=== PATIENT | female | born 2000 | race African-American/Black ===

== ENCOUNTER 2025-03-01 06:24 | Emergency (ER) | payer BC, SELFPAY ==
[2025-03-01] MEDS ORDERED: ONDANSETRON 4 MG/2 ML VIAL ONE (07:20)
[2025-03-01] MEDS ORDERED: FAMOTIDINE 20 MG/2 ML VIAL IV ONE (07:20)
[2025-03-01 07:46] LABS: Absolute Lymphocytes (CBC) 1.7 K/uL (0.7-4.9); Hematocrit 43.9 % (36.0-45.0); Hemoglobin 14.7 g/dL (12.0-15.0); MCH 27.1 pg (27.0-35.0); MCHC 33.4 g/dL (32.0-36.0); MCV 81.2 fL (80-100); MPV 6.3 fL (7.6-11.3); Nucleated RBC Absolute Count 0.0 (0-0); Nucleated Red Blood Cells % 0.2 % (0-0); RBC Red Blood Cell Count 5.41 M/uL (3.86-4.86); White Blood Count 4.40 thou/uL (4.3-10.9)
[2025-03-01 07:51] LABS: Sqamous Epithelial 20-50 /HPF (None Seen); Urine Crystals Unidentified Few /HPF (None Seen); Urine Microscopic Reflex YN ORDER UMIC
[2025-03-01 08:00] LABS: Urine Culture Reflex Order NOT NEEDED
[2025-03-01 08:07] LABS: ALT/SGPT 27.0 U/L (13-56); AST/SGOT 13.0 U/L (15-37); Albumin 3.8 g/dL (3.4-5.0); Albumin/Globulin Ratio 0.8 (1.1-1.8); Alkaline Phosphatase 57.0 U/L (45-117); Anion Gap 6.9 mEq/L (5.0-15.0); BUN Blood Urea Nitrogen 17.0 mg/dL (7-18); Globulin 4.5 g/dL (2.3-3.5); Glucose Level 98.0 mg/dL (74-106); Lipase 43.0 U/L (13-75); Potassium 3.9 mEq/L (3.5-5.1)
--- NOTE | 2025-03-01 08:22 | RAD REPORT ---
EXAMINATION: US Abdomen Exam Limited CLINICAL HISTORY: [facility] MAIN Y ABD PAIN Bed Name: 17 COMPARISON: None. TECHNIQUE: Limited upper abdominal grayscale and color flow sonographic images. FINDINGS: Gallbladder: Suboptimally distended limiting. No cholelithiasis or significant sludge. No wall thicke mirna. No pericholecystic fluid. Reportedly negative sonographic Ruiz sign Bile ducts: No intrahepatic or extrahepatic biliary dilatation. Common bile duct measures 1 mm. Liver: Visualized portions of the liver demonstrate normal echogenicity with no suspicious findings. Fluid: No ascites. IMPRESSION: No abnormalities on right upper quadrant ultrasound.
--- NOTE | 2025-03-01 09:09 | RAD REPORT ---
EXAMINATION: CT Abdomen Pelvis W Contrast CLINICAL INDICATION: Female, 24 years old. ABD PAIN TECHNIQUE: CT abdomen and pelvis was performed, after the administration of IV [facility] Axial, sagittal and coronal reconstructions were obtained. One or more of the following dose reduction techniques were used: Automated exposure control, adjustment of the mA and k V according to patient size, and iterative reconstruction. Unless otherwise specified, incidental findings do not require dedicated imaging follow-up. COMPARISON: Abdomen ultrasound of the same day FINDINGS: LOWER CHEST: The visualized lung bases are clear. LIVER: Normal in size and contour. No focal lesion. BILIARY SYSTEM: No suspicious abnormalities. SPLEEN: Normal size. No focal lesion. PANCREAS: No mass, ductal dilation, or renée-pancreatic fluid. ADRENALS: Normal; no mass. KIDNEYS: Normal size and contour. No hydronephrosis. URINARY BLADDER: Unremarkable. GASTROINTESTINAL TRACT: No evidence of free air, significant intra-abdominal free fluid, bowel obstru ction or abscess. APPENDIX: Normal appendix. LYMPH NODES: No lymphadenopathy. MUSCULOSKELETAL: No acute or suspicious osseous abnormality. ADDITIONAL FINDINGS: None. IMPRESSION: No acute or concerning abnormalities seen in the abdomen or pelvis.
--- NOTE | 2025-03-01 09:29 | ER ---
Nurse's Notes [facility] Name: Laura Garcia Age: 24 yrs Sex: Female : 2000 Arrival Date: 03/01/2025 Time: 06:24 Bed 17 Private MD: Diagnosis: Abdominal pain, unspecified;Nausea with vomiting, unspecified Presentation: 03/01 06:51 Chief complaint: Patient states: C/O AB PAIN, N/V/D SINCE SATURDAY. DENIES FEVER. br2 Coronavirus screen: Client denies travel out of the [place] in the last 14 days. Ebola Screen: Patient denies exposure to infectious person. Initial Sepsis Screen: Does the patient meet any 2 criteria? No. Patient's initial sepsis screen is negative. Does the patient have a suspected source of infection? No. Patient's initial sepsis screen is negative. Risk Assessment: Do you want to hurt yourself or someone else? Patient reports no desire to harm self or others. Onset of symptoms was February 26, 2025. 06:51 Method Of Arrival: Ambulatory br2 06:51 Acuity: LEANDER 3 br2 Triage Assessment: 06:53 General: Appears in no apparent distress. comfortable, Behavior is calm, cooperative. br2 Pain: Complains of pain in right upper quadrant, left upper quadrant, right lower quadrant and left lower quadrant Pain currently is 4 out of 10 on a pain scale. GI: Reports lower abdominal pain, upper abdominal pain, rectal bleeding, nausea, vomiting. 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 - Infectious Disease History:: Denies. - Social history:: Smoking status: Patient/guardian denies using tobacco, Patient uses alcohol, only on a social basis. Patient/guardian denies using street drugs. - Family history:: not pertinent. Screenin:13 [facility] ED Fall Risk Assessment (Adult) History of falling in the last 3 months, zm including since admission No falls in past 3 months (0 pts) Confusion or Disorientation No (0 pts) Intoxicated or Sedated No (0 pts) Impaired Gait No (0 pts) Mobility Assist Device Used No (0 pt) Altered Elimination No (0 pt) Score/Fall Risk Level 0 - 2 = Low Risk Oriented to surroundings, Maintained a safe environment, Educated pt \T\ family on fall prevention, incl call for assistance when getting out of bed, Assessed \T\ reinforced patient's understanding of fall precautions, Hourly rounding (assess needs \T\ fall precautionary measures) done, Used ambulatory aids as needed (educated on \T\ assisted with), Used gait belt as appropriate. Abuse screen: Denies threats or abuse. Denies injuries from another. Nutritional screening: No deficits noted. Tuberculosis screening: No symptoms or risk factors identified. Assessment: 07:15 General: Appears in no apparent distress. comfortable. Pain: Complains of pain in zm abdomen Pain currently is 3 out of 10 on a pain scale. Pain began 2-3 days ago. Is continuous. 07:15 Neuro: No deficits noted. Level of Consciousness is awake, alert, obeys commands, zm Oriented to person, place, time, situation. Cardiovascular: No deficits noted. Heart tones S1 S2 present Capillary refill < 3 seconds in bilateral fingers Patient's skin is warm and dry. Respiratory: No deficits noted. Airway is patent Respiratory effort is even, unlabored, Respiratory pattern is regular, symmetrical, Breath sounds are clear bilaterally. in right upper lobe, left upper lobe, left lower lobe and right lower lobe. GI: Abdomen is flat, non-distended, Bowel sounds present X 4 quads. Abd is soft and non tender X 4 quads. Reports nausea, vomiting, since Saturday morning, February 27. : No signs and/or symptoms were reported regarding the genitourinary system. EENT: Reports nasal congestion since months. Derm: No signs and/or symptoms reported regarding the dermatologic system. Skin is intact, is healthy with good turgor, Skin is dry, Skin is normal, Skin temperature is warm. Musculoskeletal: No signs and/or symptoms reported regarding the musculoskeletal system. Circulation, motion, and sensation intact. Range of motion: intact in all extremities. 09:10 Reassessment: Patient appears in no apparent distress at this time. No changes from zm previously documented assessment. Patient and/or family updated on plan of care and expected duration. Pain level reassessed. Patient is alert, oriented x 3, equal unlabored respirations, skin warm/dry/pink. Patient denies pain at this time. Patient states feeling better. Patient states symptoms have improved. Vital Signs: 06:51 BP 141 / 96; Pulse 72; Resp 18; Temp 98.7; Pulse Ox 98% ; Weight 86.18 kg; Height 5 ft. br2 5 in. ; Pain 4/10; 08:17 BP 124 / 68; Pulse 70; Resp 17; Temp 98.5; Pulse Ox 99% on R/A; Pain 1/10; zm 09:10 BP 119 / 67; Pulse 74; Resp 18; Pulse Ox 100% on R/A; Pain 0/10; zm 09:42 BP 125 / 76; Pulse 71; Resp 17; Temp 98.5; Pulse Ox 100% on R/A; Pain 0/10; zm 06:51 Body Mass Index 31.62 (86.18 kg, 165.1 cm) br2 06:51 Pain Scale: Adult br2 08:17 Pain Scale: Adult zm 09:10 Pain Scale: Adult zm 09:42 Pain Scale: Adult zm [place] Coma Score: 08:18 Eye Response: spontaneous(4). Motor Response: obeys commands(6). Verbal Response: zm oriented(5). Total: 15. 09:27 Eye Response: spontaneous(4). Motor Response: obeys commands(6). Verbal Response: zm oriented(5). Total: 15. 09:42 Eye Response: spontaneous(4). Motor Response: obeys commands(6). Verbal Response: zm oriented(5). Total: 15. ED Course: 06:27 Patient arrived in ED. mr 06:42 Zana Munoz MD is Attending Physician. chase 06:53 Triage completed. br2 06:53 Arm band placed on right wrist. br2 07:13 Brianna Henry, RN is Primary Nurse. iw 07:15 Patient has correct armband on for positive identification. Bed in low position. Call zm light in reach. Side rails up X 1. Adult w/ patient. 07:15 Provided Education on: call light use. Client placed on continuous cardiac and pulse zm oximetry monitoring. NIBP monitoring applied. Pulse ox on. NIBP on. Door closed. Noise minimized. Lights dimmed. Warm blanket given. Verbal reassurance given. 07:30 US Abdomen Limited In Process Unspecified. EDMS 07:30 Initial lab(s) drawn, by wy, sent to lab. Urine collected: clean catch specimen, clear. zm Inserted saline lock: 20 gauge in left antecubital area, using aseptic technique. Blood collected. Flushed with 10 mL NS. 07:34 Attending Physician role handed off by Zana Munoz MD rn 07:34 Yung Winkler MD is Attending Physician. rn 07:39 CBC with Diff Sent. zm 07:39 CMP Sent. zm 07:39 Lipase Sent. zm 07:39 Test, Urine Sent. zm 07:39 UA Rfx Juan Cult if indicated Sent. zm 08:22 CT Abd/Pelvis - IV Contrast Only In Process Unspecified. EDMS 09:43 No provider procedures requiring assistance completed. IV discontinued, intact, zm bleeding controlled, No redness/swelling at site. Pressure dressing applied. Administered Medications: 07:39 Drug: Famotidine IVP 20 mg IVP once; dilute with 10 mL 0.9% NaCl; give over 2 minutes zm Route: IVP; Site: left antecubital; 09:45 Follow up: Response: No adverse reaction zm 07:39 Drug: Ondansetron IVP 4 mg IVP once; over 2 minutes Route: IVP; Site: left antecubital; zm 09:45 Follow up: Response: No adverse reaction; Nausea is decreased Medication: 08:17 VIS not applicable for this client. Outcome: 09:29 Discharge ordered by . rn 09:43 Discharged to home ambulatory, with family, 09:43 Condition: stable 09:43 Discharge instructions given to patient, Instructed on discharge instructions, follow up and referral plans. no drinking with medication, medication usage, Demonstrated understanding of instructions, follow-up care, medications, Prescriptions given X 1, 09:45 Patient left the ED. Signatures: Dispatcher [employer] EDMS Zana Munoz MD MD cha Rivera, Mary, Reg Reg mr Brianna Henry, Yung Sr RN, MD MD rn Martinez, Zaina, RN RN zm Riddle, Belinda, RN RN br2
--- NOTE | 2025-03-01 09:29 | EDPHYS ---
Physician Documentation [facility] Name: Laura Garcia Age: 24 yrs Sex: Female : 2000 Arrival Date: 03/01/2025 Time: 06:24 Bed 17 Private MD: ED Physician Yung Winkler HPI: 03/01 07:21 This 24 yrs old Black Female presents to ER via Ambulatory with complaints of Abdominal chase Pain. 07:21 The patient presents with abdominal pain in the upper abdomen, in the lower abdomen. chase Onset: The symptoms/episode began/occurred 3 day(s) ago. The patient presents to the emergency department with nausea, vomiting, diarrhea, abdominal pain, of the right upper quadrant, left upper quadrant, right lower quadrant and left lower quadrant. Possible causes: unknown. The symptoms are aggravated by nothing. The symptoms are alleviated by nothing. The symptoms do not radiate. Associated signs and symptoms: Pertinent positives: nausea and vomiting, diarrhea. 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 - Infectious Disease History:: Denies. - Social history:: Smoking status: Patient/guardian denies using tobacco, Patient uses alcohol, only on a social basis. Patient/guardian denies using street drugs. - Family history:: not pertinent. ROS: 07:21 Constitutional: Negative for fever, chills, and weight loss, Eyes: Negative for injury, chase pain, redness, and discharge, ENT: Negative for injury, pain, and discharge, Neck: Negative for injury, pain, and swelling, Cardiovascular: Negative for chest pain, palpitations, and edema, Respiratory: Negative for shortness of breath, cough, wheezing, and pleuritic chest pain, Back: Negative for injury and pain, : Negative for injury, bleeding, discharge, and swelling, MS/Extremity: Negative for injury and deformity, Skin: Negative for injury, rash, and discoloration, Neuro: Negative for headache, weakness, numbness, tingling, and seizure, Psych: Negative for depression, anxiety, suicide ideation, homicidal ideation, and hallucinations, Allergy/Immunology: Negative for hives, rash, and allergies, Endocrine: Negative for neck swelling, polydipsia, polyuria, polyphagia, and marked weight changes, 07:21 Abdomen/GI: Positive for abdominal pain, nausea and vomiting, Exam: 07:21 Constitutional: This is a well developed, well nourished patient who is awake, alert, chase and in no acute distress. Head/Face: Normocephalic, atraumatic. Eyes: Pupils equal round and reactive to light, extra-ocular motions intact. Lids and lashes normal. Conjunctiva and sclera are non-icteric and not injected. Cornea within normal limits. Periorbital areas with no swelling, redness, or edema. ENT: Nares patent. No nasal discharge, no septal abnormalities noted. Tympanic membranes are normal and external auditory canals are clear. Oropharynx with no redness, swelling, or masses, exudates, or evidence of obstruction, uvula midline. Mucous membranes moist. Neck: Trachea midline, no thyromegaly or masses palpated, and no cervical lymphadenopathy. Supple, full range of motion without nuchal rigidity, or vertebral point tenderness. No Meningismus. Chest/axilla: Normal chest wall appearance and motion. Nontender with no deformity. No lesions are appreciated. Cardiovascular: Regular rate and rhythm with a normal S1 and S2. No gallops, murmurs, or rubs. Normal PMI, no JVD. No pulse deficits. Respiratory: Lungs have equal breath sounds bilaterally, clear to auscultation and percussion. No rales, rhonchi or wheezes noted. No increased work of breathing, no retractions or nasal flaring. Back: No spinal tenderness. No costovertebral tenderness. Full range of motion. Skin: Warm, dry with normal turgor. Normal color with no rashes, no lesions, and no evidence of cellulitis. MS/ Extremity: Pulses equal, no cyanosis. Neurovascular intact. Full, normal range of motion., bilateral aka Neuro: Awake and alert, GCS 15, oriented to person, place, time, and situation. Cranial nerves II-XII grossly intact. Motor strength 5/5 in all extremities. Sensory grossly intact. Cerebellar exam normal. Normal gait. Psych: Awake, alert, with orientation to person, place and time. Behavior, mood, and affect are within normal limits. 07:21 Abdomen/GI: Inspection: abdomen appears normal, Bowel sounds: normal, Palpation: mild abdominal tenderness, in all quadrants, Liver: no appreciated palpable abnormalities, Hernia: not appreciated, 07:21 Musculoskeletal/extremity: DVT Exam: No signs of deep vein thrombosis. no pain, no swelling, no tenderness, negative Homans' sign noted on exam, no appreciated bluish discoloration, no erythema, no increased warmth, Vital Signs: 06:51 BP 141 / 96; Pulse 72; Resp 18; Temp 98.7; Pulse Ox 98% ; Weight 86.18 kg; Height 5 ft. br2 5 in. ; Pain 4/10; 08:17 BP 124 / 68; Pulse 70; Resp 17; Temp 98.5; Pulse Ox 99% on R/A; Pain 1/10; zm 09:10 BP 119 / 67; Pulse 74; Resp 18; Pulse Ox 100% on R/A; Pain 0/10; zm 09:42 BP 125 / 76; Pulse 71; Resp 17; Temp 98.5; Pulse Ox 100% on R/A; Pain 0/10; zm 06:51 Body Mass Index 31.62 (86.18 kg, 165.1 cm) br2 06:51 Pain Scale: Adult br2 08:17 Pain Scale: Adult zm 09:10 Pain Scale: Adult zm 09:42 Pain Scale: Adult zm [place] Coma Score: 08:18 Eye Response: spontaneous(4). Motor Response: obeys commands(6). Verbal Response: zm oriented(5). Total: 15. 09:27 Eye Response: spontaneous(4). Motor Response: obeys commands(6). Verbal Response: zm oriented(5). Total: 15. 09:42 Eye Response: spontaneous(4). Motor Response: obeys commands(6). Verbal Response: zm oriented(5). Total: 15. MDM: 06:42 Medical Screening Exam initiated chase 07:23 Differential diagnosis: Nonspecific abd pain, gastritis, cholecystitis, pancreatitis, chase appendicitis, diverticulitis, viral gastroenteritis, gastroenteritis, appendicitis, cholecystitis, Cholelithiasis, gastritis, gastroesophageal reflux disease, non-specific abd pain, Peptic Ulcer Disease, Pyelonephritis, Ureterolithiasis, urinary tract infection. Data reviewed: vital signs, nurses notes, lab test result(s), radiologic studies, CT scan, ultrasound. Consideration of Admission/Observation Escalation of care including admission/observation considered. I considered the following discharge prescriptions or medication management in the emergency department Medications were administered in the Emergency Department. See MAR. Independent interpretation of the following test(s) in the Emergency Department CT Scan: My interpretation is CT AB/PEL. Historians other than the Patient: Parent: MOM WELL INFORMED. Care significantly affected by the following chronic conditions: NONE. Counseling: I had a detailed discussion with the patient and/or guardian regarding the historical points, exam findings, and any diagnostic results supporting the discharge/admit diagnosis, lab results, radiology results, the need for outpatient follow up, for definitive care, a family practitioner. 07:35 Transition of care: Care assumed from Zana Munoz MD. ED course: Patient signed out rn to me by Dr. Munoz pending labs and CT imaging.. 09:28 Response to treatment: the patient's symptoms have mildly improved after treatment, and rn as a result, I will discharge patient. Special discussion: Based on the patient's Hx, exam, and Dx evaluation, there is no indication for emergent surgery or inpatient Tx. It is understood by the patient/guardian that if the Sx's persist or worsen they need to return immediately for re-evaluation. I discussed with the patient/guardian in detail that at this point there is no indication for admission to the hospital. It is understood, however, that if the symptoms persist or worsen the patient needs to return immediately for re-evaluation. 03/01 06:43 Order name: CBC with Diff; Complete Time: 08:25 [facility] 03/01 06:43 Order name: CMP; Complete Time: 08:25 [facility] 03/01 06:43 Order name: Lipase; Complete Time: 08:25 [facility] 03/01 06:43 Order name: Test, Urine; Complete Time: 08:25 [facility] 03/01 06:43 Order name: UA Rfx Juan Cult if indicated; Complete Time: 08:25 [facility] 03/01 06:43 Order name: CT Abd/Pelvis - IV Contrast Only; Complete Time: 09:23 [facility] 03/01 06:43 Order name: US Abdomen Limited; Complete Time: 08:25 [facility] 03/01 06:43 Order name: IV Saline Lock; Complete Time: 07:39 [facility] 03/01 06:43 Order name: Labs collected and sent; Complete Time: 07:39 chase Administered Medications: 07:39 Drug: Famotidine IVP 20 mg IVP once; dilute with 10 mL 0.9% NaCl; give over 2 minutes zm Route: IVP; Site: left antecubital; 09:45 Follow up: Response: No adverse reaction zm 07:39 Drug: Ondansetron IVP 4 mg IVP once; over 2 minutes Route: IVP; Site: left antecubital; zm 09:45 Follow up: Response: No adverse reaction; Nausea is decreased zm Disposition Summary: 03/01/25 09:29 Discharge Ordered Notes: Location: Home rn Problem: new rn Symptoms: have improved rn Condition: Stable rn Diagnosis - Abdominal pain, unspecified rn - Nausea with vomiting, unspecified rn Followup: rn - With: Private Physician - When: As needed - Reason: Recheck today's complaints, Re-evaluation by your physician Discharge Instructions: - Discharge Summary Sheet rn - Abdominal Pain, Adult rn - Nausea and Vomiting, Adult rn - Pain Without a Known Cause rn - Form - Return To Work hb Forms: - Medication Reconciliation Form rn - Antibiotic 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
[2025-03-01 11:19] VITALS: TEMP 98.5
[2025-03-01 11:21] VITALS: O2SAT 100
[2025-03-01 11:23] VITALS: BP 125/76
== END 2025-03-01 09:45 | disposition home or self-care (01) ==
LOC: ER 06:24
DX: R10.85 Abdominal pain of multiple sites (principal); R11.2 Nausea with vomiting, unspecified
CPT/HCPCS: 36415; 74177; 76705; 80053; 81001; 81025; 83690; 85025; 96374; 96375; 99284; J2405; Q9967